=== PATIENT | female | born 1945 | race African-American/Black ===

== ENCOUNTER 2022-11-21 15:36 | Emergency (ER) | payer MEDICARE, MEDICAID, OTHER ==
[~2022-11-21] VITALS: Ht 160 cm; Wt 89.6 kg
[2022-11-21 18:34] VITALS: BP 114/60
== END 2022-11-21 19:26 | disposition home or self-care (01) ==
LOC: ER 15:36
DX: M54.50 Low back pain, unspecified (principal); I10 Essential (primary) hypertension; E11.9 Type 2 diabetes mellitus without complications; V49.9XXA Car occupant (driver) (passenger) injured in unspecified traffic accident, initial encounter; Y93.89 Activity, other specified; Y92.89 Other specified places as the place of occurrence of the external cause; Y99.8 Other external cause status
CPT/HCPCS: 72100